=== PATIENT | female | born 1980 | race Hispanic/Latino ===

== ENCOUNTER 2023-05-12 06:49 | Day surgery (SDC) | payer BC ==
[2023-05-10 09:07] LABS: BASOPHILS % (AUTO) 0.5 % (0.0-5.0); EOSINOPHILS % (AUTO) 1.8 % (0.0-8.0); HEMATOCRIT 42.2 % (36-48); LYMPHOCYTES % (AUTO) 39.7 % (21.0-51.0); MEAN CORPUSCULAR HEMOGLOBIN 30.4 pg (27.0-33.0); MEAN CORPUSCULAR HGB CONC 33.6 g/dL (32.0-36.0); MEAN CORPUSCULAR VOLUME 90.4 fL (79-99); MONOCYTES % (AUTO) 6.4 % (3.0-13.0); NEUTROPHILS % (AUTO) 51.1 % (40.0-77.0); PLATELET COUNT (AUTO) 296 K/uL (130-400); RED BLOOD CELL COUNT(AUTO) 4.67 MIL/uL (4.00-5.50); RED CELL DISTRIBUTION WIDTH 12.5 % (11.0-15.5); WHITE BLOOD COUNT (AUTO) 6.1 K/uL (4.8-10.8)
[2023-05-10 09:15] LABS: CREATININE 0.7 mg/dL (0.5-1.5); POTASSIUM 4.5 mmol/L (3.5-5.1)
[2023-05-10 09:34] VITALS: BP 140/84
[2023-05-12] VITALS (18 sets, daily range): BP systolic 112–141; BP diastolic 57–85
[~2023-05-12] VITALS: Ht 154.9 cm; Wt 105.2 kg
[~2023-05-12 06:49] MED LIST: ACET-2743 PO; FAMC500T8 PO; FAMO20TA8 PO; PANT40TA54 PO; PRAZ1CAP5 PO; RIZA10TA41 PO; SERT-439 PO; SUCR1TAB2 PO; TUMS PO
[2023-05-12] MEDS ORDERED: LACTATED RINGERS 1000ML 1,000 ML IV ONE (07:02)
[2023-05-12] MEDS ORDERED: PROPOFOL 10 MG/ML 20ML VIAL IV ONE (07:35)
[2023-05-12] MEDS ORDERED: ONDANSETRON 4MG INJ ONE ×2 (07:35→11:01)
[2023-05-12] MEDS ORDERED: ROCURONIUM 10MG/1ML SYR 10 MG/ML ML ONE (07:36)
[2023-05-12] MEDS ORDERED: MIDAZOLAM HCL 1 MG/ML 2ML VIAL ONE (07:36)
[2023-05-12] MEDS ORDERED: BUPIVACAINE/PF 0.5% 30ML VIAL ONE (07:51)
[2023-05-12] MEDS ORDERED: LIDOCAINE HCL 1% 20 ML VIAL ONE (07:51)
[2023-05-12] MEDS ORDERED: FENTANYL CITRATE PF 50 MCG/1 ML 2ML VIAL ONE ×2 (07:53→08:22)
[2023-05-12] MEDS ORDERED: CEFAZOLIN SODIUM 2 GM VIAL ONE (08:21)
[2023-05-12] MEDS ORDERED: CEFAZOLIN SODIUM 2 GM VIAL IVPB ONE (08:35)
[2023-05-12] MEDS ORDERED: LIDOCAINE 1%-EPI 1:100,000 20 ML VIAL IJ ONE (08:57)
[2023-05-12] MEDS ORDERED: GLYCOPYRROLATE 1 MG/5 ML SYRINGE ONE (09:34)
[2023-05-12] MEDS ORDERED: NEOSTIGMINE 5MG/5ML SYR IV ONE (09:34)
[2023-05-12] MEDS ORDERED: BACITRACIN 28.4 GM OINT TP ONE (10:07)
[2023-05-12] MEDS ORDERED: MEPERIDINE-PF 25 MG/ML SYG ONE (11:03)
[2023-05-12] MEDS ORDERED: FAMOTIDINE 20MG VIAL IV ONE (11:13)
[2023-05-12] MEDS ORDERED: METOCLOPRAMIDE 10 MG/2 ML VIAL ONE (11:13)
== END 2023-05-12 13:19 | disposition home or self-care (01) ==
LOC: DAH 06:49
PROVIDERS: ATTEND Student in an Organized Health Care Education/Training Program
DX: R22.0 Localized swelling, mass and lump, head (principal); Z20.822 Contact with and (suspected) exposure to COVID-19; L72.12 Trichodermal cyst; I10 Essential (primary) hypertension; K21.9 Gastro-esophageal reflux disease without esophagitis; F41.9 Anxiety disorder, unspecified; E66.01 Morbid (severe) obesity due to excess calories; F32.A Depression, unspecified; Z90.49 Acquired absence of other specified parts of digestive tract; Z98.51 Tubal ligation status; Z90.710 Acquired absence of both cervix and uterus; Z98.890 Other specified postprocedural states; Z79.899 Other long term (current) drug therapy; Z82.49 Family history of ischemic heart disease and other diseases of the circulatory system; Z68.41 Body mass index [BMI] 40.0-44.9, adult
CPT/HCPCS: 87426; 36415; 80048; 85025; 11423; A4663; J7120; J3490 ×3; J3010 ×2; J2710; J2250; J2704; J2405 ×2; J2175; J2765; J0690 ×2; A4930 ×2; A4215 ×2; A4223; A4222; A4221; A4600

== ENCOUNTER → 2024-03-29 | Outpatient (CLI) | payer BC | END | disposition home or self-care (01) | LOC: RAH 09:54 | PROVIDERS: ATTEND Surgery | DX: K44.9 Diaphragmatic hernia without obstruction or gangrene (principal); K21.9 Gastro-esophageal reflux disease without esophagitis | CPT/HCPCS: 74240 ==

== ENCOUNTER → 2024-05-07 | Outpatient (CLI) | payer BC | END | disposition home or self-care (01) | LOC: RAH 11:04 | PROVIDERS: ATTEND Surgery | DX: K30 Functional dyspepsia (principal); K21.00 Gastro-esophageal reflux disease with esophagitis, without bleeding | CPT/HCPCS: 78264; A9541 ==

== ENCOUNTER 2024-07-18 06:24 | Day surgery (SDC) | payer BC ==
[2024-07-16 08:22] LABS: BASOPHILS # (AUTO) 0.02 K/uL (0.00-0.20); BASOPHILS % (AUTO) 0.3 % (0.0-5.0); EOSINOPHILS # (AUTO) 0.07 K/uL (0.00-0.70); EOSINOPHILS % (AUTO) 1.2 % (0.0-8.0); HEMATOCRIT 41.5 % (36-48); IMMATURE GRANULOCYTE ABSOLUTE 0.01 K/uL (0-1); LYMPHOCYTES # (AUTO) 2.6 K/uL (1.0-4.8); LYMPHOCYTES % (AUTO) 43.4 % (21.0-51.0); MEAN CORPUSCULAR HEMOGLOBIN 31.5 pg (27.0-33.0); MEAN CORPUSCULAR HGB CONC 33.7 g/dL (32.0-36.0); MEAN CORPUSCULAR VOLUME 93.5 fL (79-99); MONOCYTES # (AUTO) 0.4 K/uL (0.1-1.0); NEUTROPHILS % (AUTO) 48.9 % (40.0-77.0); PLATELET COUNT (AUTO) 268 K/uL (130-400); RED BLOOD CELL COUNT(AUTO) 4.44 MIL/uL (4.00-5.50); RED CELL DISTRIBUTION WIDTH 11.9 % (11.0-15.5)
[2024-07-16 08:24] VITALS: BP 146/66; PULSE 67; RESP 15; TEMP 98.3
[2024-07-16 08:26] LABS: CREATININE 0.7 mg/dL (0.5-1.0); POTASSIUM 4.6 mmol/L (3.5-5.1)
[2024-07-18] VITALS (16 sets, daily range): BP systolic 107–146; BP diastolic 58–84; PULSE 62–83; RESP 14–18; TEMP 97.4–97.9
[~2024-07-18] VITALS: Ht 154.9 cm; Wt 95.4 kg
[~2024-07-18 06:24] MED LIST changes: -ACET-2743 PO; -FAMC500T8 PO; -FAMO20TA8 PO; +FAMO40TA7 PO; +PHEN15CA61 PO; -PRAZ1CAP5 PO; -RIZA10TA41 PO; -SERT-439 PO; -SUCR1TAB2 PO; +TOPI-97 PO; -TUMS PO
[2024-07-18] MEDS: LACTATED RINGERS 1000ML 1,000 ML IV ONE (07:20)
[2024-07-18] MEDS: ceFAZolin SODIUM 2 GM VIAL ONE (07:20)
[2024-07-18] MEDS ORDERED: SUCCINYLCHOLINE CHLORIDE 20 MG/ML 10 ML VIAL ONE (08:02)
[2024-07-18] MEDS ORDERED: MIDAZOLAM HCL 1 MG/ML 2ML VIAL ONE (08:03)
[2024-07-18] MEDS ORDERED: rocuRONium bROMide 10MG/1ML 5ML VL ONE (08:03)
[2024-07-18] MEDS ORDERED: proPOFol 10 MG/ML 20ML VIAL IV ONE (08:03)
[2024-07-18] MEDS ORDERED: FENTanyl CITRate PF 50 MCG/1 ML 2ML VIAL ONE (08:03)
[2024-07-18] MEDS: BUPIvacaine/PF 0.25% 30ML VIAL IJ ONE (08:23)
[2024-07-18] MEDS: IOHEXOL-350 50ML VIAL IV ONE (08:23)
[2024-07-18] MEDS ORDERED: GLYCOPYRROLATE 0.2 MG/ML 5 ML VIAL ONE (08:29)
[2024-07-18] MEDS: MEPERIDINE-PF 25 MG/ML SYG ONE (09:46)
[2024-07-18] MEDS: ONDANSETRON 4MG INJ ONE (09:56)
== END 2024-07-18 11:15 | disposition home or self-care (01) ==
LOC: DAH 06:24
PROVIDERS: ATTEND Surgery
DX: K80.12 Calculus of gallbladder with acute and chronic cholecystitis without obstruction (principal); K21.00 Gastro-esophageal reflux disease with esophagitis, without bleeding; E66.01 Morbid (severe) obesity due to excess calories; K44.9 Diaphragmatic hernia without obstruction or gangrene; I10 Essential (primary) hypertension; F41.9 Anxiety disorder, unspecified; F32.A Depression, unspecified; F43.10 Post-traumatic stress disorder, unspecified; K31.84 Gastroparesis; Z68.37 Body mass index [BMI] 37.0-37.9, adult; Z98.890 Other specified postprocedural states; Z79.899 Other long term (current) drug therapy
CPT/HCPCS: 80048; 85025; 86850; 86900; 86901; 36415; 93005; 47563; 88304; A6260; A4600; A4663; J7030; J7120 ×2; A4215 ×2; C1758; J3010; J0330; J0665; J3490 ×2; J2250; J2704; J2405; J2175; Q9967; J0690; C1769 ×3; G0168; A4649 ×2; A4223; A4222; A4221